=== PATIENT | male | born 1995 | race African-American/Black ===

== ENCOUNTER 2019-05-20 12:16 | Emergency (ER) | payer MEDICAID ==
[~2019-05-20] VITALS: Ht 175.3 cm; Wt 62.0 kg
[2019-05-20 12:39] VITALS: BP 104/70
== END 2019-05-20 16:38 | disposition left against medical advice (07) ==
LOC: ER 16:06
DX: Z53.21 Procedure and treatment not carried out due to patient leaving prior to being seen by health care provider (principal); F17.210 Nicotine dependence, cigarettes, uncomplicated; Z88.6 Allergy status to analgesic agent